=== PATIENT | female | born 1955 | race Caucasian/White ===

== ENCOUNTER → 2020-02-16 15:13 | Outpatient (BNVA) | payer OTHER, SELFPAY | PROVIDERS: Family Provider Family Medicine; Referring Provider Nurse Practitioner Family; Visit Provider Dermatology | DX: R21 Rash and other nonspecific skin eruption (principal); D23.9 Other benign neoplasm of skin, unspecified | CPT/HCPCS: 11104; 88304; 88305; 99203 ==

== ENCOUNTER → 2020-03-01 10:51 | Outpatient (BNVA) | payer OTHER, SELFPAY | PROVIDERS: Family Provider Family Medicine; Visit Provider Dermatology | DX: Z48.02 Encounter for removal of sutures (principal); L90.0 Lichen sclerosus et atrophicus | CPT/HCPCS: 99213 ==

== ENCOUNTER 2020-04-13 10:55 | Inpatient (IN) | payer OTHER, SELFPAY ==
[2020-04-13] VITALS (19 sets, daily range): BP systolic 90–128; BP diastolic 49–88; PULSE 83–97; RESP 18–30; TEMP 36.4–37.3; O2SAT 93–98; BMI 41.9; BMI 42.3
--- NOTE | 2020-04-13 11:18 | ECG_ITS ---
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 Measurements Intervals [place] Rate: 86 P: 44 TN: 163 QRS: -24 QRSD: 105 T: 20 QT: 378 QTc: 452 Interpretive Statements SINUS RHYTHM BORDERLINE LEFT AXIS DEVIATION [QRS AXIS < -20] No previous ECG available for comparison Electronically Signed On 04-15-2020 20:43:57 CDT by Sridhar Vanessa M.D. [id number]
--- NOTE | 2020-04-13 11:18 | XRR_ITS ---
PROCEDURE INFORMATION: Exam: XR Chest, 1 View Exam date and time: 04/13/2020 1:32 PM Age: 64 years old Clinical indication: Condition or disease; Other: Covid TECHNIQUE: Imaging protocol: XR of the chest Views: 1 view. COMPARISON: No relevant prior studies available. FINDINGS: Lungs: Low lung volumes are seen No consolidation. Pleural space: There is elevation of the right hemidiaphragm No pleural effusion. No pneumothorax. Heart/Mediastinum: Unremarkable. No cardiomegaly. Bones/joints: Unremarkable. XR/XR chest 1V portable [id number] IMPRESSION: 1. No acute findings. 2. Low lung volumes 3. Elevated right hemidiaphragm
--- NOTE | 2020-04-13 11:26 | ED_ITS ---
HPI - SOB/Dyspnea General: Chief Complaint: COVID symptoms Stated Complaint: COVID related breathing issues Time Seen by Provider: 04/13/20 10:59 History of Present Illness: HPI Narrative: This patient is a 64-year-old female who presents today with breathing difficulty. She was exposed to COVID on March 27. She began having symptoms on March 31 and came into the ER where she tested positive. Her symptoms up until yesterday have mainly been diarrhea, fever, body aches, weakness, poor appetite, fatigue. Yesterday she started having a bad cough and difficulty breathing. That has progressed and become worse today. She does not have any underlying lung problems or heart problems. She is a diabetic. She is morbidly obese. Her PCP is Dr. Boone. She has not been seen for the COVID other than in the ER on the . She has not been on any treatment for it. MD elicited complaint: shortness of breath and cough Pertinent past history: diabetes Onset (ago): day(s) (14 days since start of COVID symptoms, 2 days since start of cough and shortness of breath) Context: recent illness Exacerbating factors: exertion Relieving factors: nothing Known history of: diabetes Associated symptoms: Reports cough, dizziness, fever(s), lightheadedness, myalgias, nausea and other (Diarrhea) Review of Systems General: Reports: 10 or more systems reviewed and unremarkable except in HPI and below Const: Reports: fever(s), chills, body aches, change in appetite, fatigue and malaise Eyes: Denies: change in vision ENMT: Denies: odynophagia Card: Reports: lightheadedness Resp: Reports: dyspnea and non-productive cough; Denies: productive cough GI: Reports: nausea and diarrhea : Denies: flank pain or difficulty voiding Musc: Denies: neck pain or back pain Skin/Breast: Denies: rash Neuro: Reports: dizziness Umang/Lymph: Denies: easy bruising or easy bleeding PFSH ED PFSH: Medical History (Updated 04/17/20 @ 00:00 by ) Diabetes mellitus GERD (gastroesophageal reflux disease) Gout Hypercholesterolemia Hypertension Surgical History (Updated 04/13/20 @ 14:41 by Dalton Garcia MD) History of ankle surgery History of appendectomy History of cholecystectomy Hx of total hip arthroplasty Family History Father Cancer Diabetes Social History Smoking and tobacco status: never smoked Second hand smoke exposure: No Alcohol intake: never Physical Exam Const: COMMON NORMALS: patient oriented x3, no limitations and alert GENERAL APPEARANCE: cooperative, well kempt and anxious NUTRITIONAL APPEARANCE: obese morbidly obese HENMT: HEAD & SCALP: normal to inspection FACE & SINUS: normal facial exam Eye: GENERAL EYE: appearance normal, both eyes and all related structures Neck/C-Spine: COMMON NORMALS: supple, no meningeal signs and no JVD Chest: COMMONS NORMALS: normal inspection of the chest Resp: EFFORT & INSPECTION: Yes tachypneic, Yes labored and Yes uses accessory muscles AUSCULTATION: diminished lung sounds (Especially on the left) Cardio: COMMON NORMALS: no JVD, regular rate, regular rhythm and No murmurs present (Cardio) RATE: regular rate RHYTHM: regular rhythm GI: COMMON NORMALS: Normal to inspection, nondistended, normoactive bowel sounds present, Soft to palpation and non-tender INSPECTION: Yes normal to inspection AUSCULTATION: Yes normoactive bowel sounds PALPATION: Yes Soft to palpation Back/Pelvis: COMMON NORMALS: thoracic and lumbar spine normal to inspection Extremity: COMMON NORMALS: normal to inspection Neuro: COMMON NORMALS: patient oriented x3, moves all extremities, no focal motor deficits and no sensory deficits noted SENSORIUM/ORIENTATION: Yes alert MENINGEAL SIGNS: Yes no meningeal signs Psych: COMMON NORMALS: mental status grossly normal, cooperative and normal affect APPEARANCE: Yes well kempt Skin: COMMON NORMALS: no rashes or lesions noted and turgor normal GENERAL SKIN EXAM: no rashes or lesions noted and turgor normal Course ED course: This patient required no oxygen while in the ER. The lowest sat was 92% and for the most part she was in the mid to high 90s. She is well into the course and I am concerned about a secondary bacterial pneumonia. We discussed monitoring her oxygen at home. She will return if she is worsening. I put her on doxycycline. Will also continue some Decadron. She has a PCP for follow-up. Vital Signs: Vital signs: Vital Signs Temperature 98.8 F 04/16/20 08:00 Pulse Rate 63 04/16/20 10:34 Respiratory Rate 18 04/16/20 10:34 Blood Pressure 167/71 04/16/20 08:00 Pulse Oximetry 92 04/16/20 10:34 MDM - SOB/Dyspnea Lab Data: Labs: Lab Results 04/13/20 04/13/20 04/13/20 Range/Units 11:35 11:35 11:35 WBC 8.7 (4.0-10.0) 10^3/ uL RBC 4.02 L (4.1-5.3) 10^6/u L Hgb 10.7 L (11.5-15.3) g/dL Hct 33.9 L (37.0-47.0) % MCV 84.3 (81-99) fL MCH 26.6 L (28.0-34.0) pg MCHC 31.6 (30.0-36.0) g/dL RDW 13.5 (12.1-15.1) % Plt Count 232 (130-400) 10^3/c mm MPV 9.9 (7.4-10.4) fL Neut % (Auto) 77.4 % Lymph % (Auto) 14.1 % Beauregard % (Auto) 7.4 % Eos % (Auto) 0.6 % Baso % (Auto) 0.2 % Neut # (Auto) 6.75 (1.8-7.7) 10^3/u L Lymph # (Auto) 1.2 (0.8-4.8) 10^3/u L Beauregard # (Auto) 0.7 (0.2-0.9) 10^3/u L Eos # (Auto) 0.1 (0.0-0.8) 10^3/u L Baso # (Auto) 0.0 (0.0-0.1) 10^3/u L Nucleated RBC % (a uto) 0 % Nucleated RBCs # 0.0 /100WBC PT 12.80 (12.1-14.9) SECO NDS INR 0.93 (0.8-1.2) Fibrinogen 712 H (174-498) mg/dL D-Dimer 1.69 H (0-0.59) ug/mIFE U Sodium 137 (136-145) mmol/L Potassium 3.7 (3.5-5.1) mmol/L Chloride 97 L (98-107) mmol/L Carbon Dioxide 23 (22-29) mmol/L Anion Gap 20.7 H (5-19) BUN 38 H (8-23) mg/dL Creatinine 1.7 H (0.5-0.9) mg/dL GFR Calculation 30.4 L (90-130) mL/min Glucose 195 H (65-115) mg/dL Calculated Osmolal ity 298 H (285-295) mOsm/k g Lactic Acid (0.5-2.2) mmol/L Calcium 7.7 L (8.5-10.5) mg/dL Magnesium (1.7-2.3) mg/dL Ferritin 216 H (15-150) ng/mL Total Bilirubin 0.3 (0.15-1.2) mg/dL AST 44 H (0-32) U/L ALT 49 H (0-33) U/L Alkaline Phosphata se 142 H (35-105) IU/L Lactate Dehydrogen ase 250 H (135-214) U/L Troponin T Gen 5 n g/L (0-10) ng/L C-Reactive Protein 170.8 H (0.0-4.9) mg/L NT-Pro-B Natriuret Pep 167 H (0-125) pg/mL Total Protein 6.4 L (6.6-8.7) g/dL Albumin 3.4 L (3.5-5.2) g/dL Globulin 3.0 (1.3-4.6) g/dL Procalcitonin 0.11 (0-0.5) ng/mL Hepatitis A IgM Ab (Nonreactive) Hep Bs Antigen (Nonreactive) Hep B Core IgM Ab (Nonreactive) Hepatitis C Antibo dy (Nonreactive) 04/13/20 04/13/20 04/13/20 Range/Units 11:35 11:35 11:35 WBC (4.0-10.0) 10^3/ uL RBC (4.1-5.3) 10^6/u L Hgb (11.5-15.3) g/dL Hct (37.0-47.0) % MCV (81-99) fL MCH (28.0-34.0) pg MCHC (30.0-36.0) g/dL RDW (12.1-15.1) % Plt Count (130-400) 10^3/c mm MPV (7.4-10.4) fL Neut % (Auto) % Lymph % (Auto) % Beauregard % (Auto) % Eos % (Auto) % Baso % (Auto) % Neut # (Auto) (1.8-7.7) 10^3/u L Lymph # (Auto) (0.8-4.8) 10^3/u L Beauregard # (Auto) (0.2-0.9) 10^3/u L Eos # (Auto) (0.0-0.8) 10^3/u L Baso # (Auto) (0.0-0.1) 10^3/u L Nucleated RBC % (a uto) % Nucleated RBCs # /100WBC PT (12.1-14.9) SECO NDS INR (0.8-1.2) Fibrinogen (174-498) mg/dL D-Dimer (0-0.59) ug/mIFE U Sodium (136-145) mmol/L Potassium (3.5-5.1) mmol/L Chloride (98-107) mmol/L Carbon Dioxide (22-29) mmol/L Anion Gap (5-19) BUN (8-23) mg/dL Creatinine (0.5-0.9) mg/dL GFR Calculation (90-130) mL/min Glucose (65-115) mg/dL Calculated Osmolal ity (285-295) mOsm/k g Lactic Acid 1.9 (0.5-2.2) mmol/L Calcium (8.5-10.5) mg/dL Magnesium (1.7-2.3) mg/dL Ferritin (15-150) ng/mL Total Bilirubin (0.15-1.2) mg/dL AST (0-32) U/L ALT (0-33) U/L Alkaline Phosphata se (35-105) IU/L Lactate Dehydrogen ase (135-214) U/L Troponin T Gen 5 n g/L 19 H (0-10) ng/L C-Reactive Protein (0.0-4.9) mg/L NT-Pro-B Natriuret Pep (0-125) pg/mL Total Protein (6.6-8.7) g/dL Albumin (3.5-5.2) g/dL Globulin (1.3-4.6) g/dL Procalcitonin (0-0.5) ng/mL Hepatitis A IgM Ab Non-reactive (Nonreactive) Hep Bs Antigen Non-reactive (Nonreactive) Hep B Core IgM Ab Non-reactive (Nonreactive) Hepatitis C Antibo dy Non-reactive (Nonreactive) 04/13/20 Range/Units 11:35 WBC (4.0-10.0) 10^3/ uL RBC (4.1-5.3) 10^6/u L Hgb (11.5-15.3) g/dL Hct (37.0-47.0) % MCV (81-99) fL MCH (28.0-34.0) pg MCHC (30.0-36.0) g/dL RDW (12.1-15.1) % Plt Count (130-400) 10^3/c mm MPV (7.4-10.4) fL Neut % (Auto) % Lymph % (Auto) % Beauregard % (Auto) % Eos % (Auto) % Baso % (Auto) % Neut # (Auto) (1.8-7.7) 10^3/u L Lymph # (Auto) (0.8-4.8) 10^3/u L Beauregard # (Auto) (0.2-0.9) 10^3/u L Eos # (Auto) (0.0-0.8) 10^3/u L Baso # (Auto) (0.0-0.1) 10^3/u L Nucleated RBC % (a uto) % Nucleated RBCs # /100WBC PT (12.1-14.9) SECO NDS INR (0.8-1.2) Fibrinogen (174-498) mg/dL D-Dimer (0-0.59) ug/mIFE U Sodium (136-145) mmol/L Potassium (3.5-5.1) mmol/L Chloride (98-107) mmol/L Carbon Dioxide (22-29) mmol/L Anion Gap (5-19) BUN (8-23) mg/dL Creatinine (0.5-0.9) mg/dL GFR Calculation (90-130) mL/min Glucose (65-115) mg/dL Calculated Osmolal ity (285-295) mOsm/k g Lactic Acid (0.5-2.2) mmol/L Calcium (8.5-10.5) mg/dL Magnesium 1.3 L (1.7-2.3) mg/dL Ferritin (15-150) ng/mL Total Bilirubin (0.15-1.2) mg/dL AST (0-32) U/L ALT (0-33) U/L Alkaline Phosphata se (35-105) IU/L Lactate Dehydrogen ase (135-214) U/L Troponin T Gen 5 n g/L (0-10) ng/L C-Reactive Protein (0.0-4.9) mg/L NT-Pro-B Natriuret Pep (0-125) pg/mL Total Protein (6.6-8.7) g/dL Albumin (3.5-5.2) g/dL Globulin (1.3-4.6) g/dL Procalcitonin (0-0.5) ng/mL Hepatitis A IgM Ab (Nonreactive) Hep Bs Antigen (Nonreactive) Hep B Core IgM Ab (Nonreactive) Hepatitis C Antibo dy (Nonreactive) Discharge Plan Discharge Patient Disposition: Admitted As Inpatient Admit Provider: Dalton Garcia Clinical Impression: Pneumonia due to COVID-19 virus, Acute kidney injury, Dehydration Condition: Stable Referrals: Kimberly Boone MD [Physician] - 04/20/20 1:45 pm () Discharge Diet: Cardiac and Diabetic Discharge Activity: Increase activity as tolerated Patient Instructions: Doxycycline (By mouth), Albuterol (By breathing), Dexamethasone (By mouth), Apixaban (By mouth), Acute Kidney Injury (DC) Additional Instructions: Take all medicine as prescribed. Return for any worsening. Follow-up with your primary care provider by telehealth, Sunday On follow-up with your primary care provider please get a CBC, and BMP for recheck of your hemoglobin and kidney function. For now hold your carvedilol secondary to bradycardia. Your primary care provider will assess this and recommend restart or alter dosing Sunday. Home oxygen evaluation prior to discharge. 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
[2020-04-13] MEDS: lactated ringers 1,000 ML 150 ML IV (11:42)
[2020-04-13] MEDS: dexamethasone 4 mg/mL INJ 6 MG IVP (11:43)
[2020-04-13] MEDS: enoxaparin 40 mg/0.4 mL Syringe SUBCUT (11:43)
[2020-04-13] MEDS: enoxaparin 100 mg/mL Syringe SUBCUT (11:43)
[2020-04-13 11:49] LABS: Basophils % 0.2 %; Eosinophils # 0.1 10^3/uL (0.0-0.8); Eosinophils % 0.6 %; Hematocrit 33.9 % (37.0-47.0); Hemoglobin 10.7 g/dL (11.5-15.3); Lymphocytes # 1.2 10^3/uL (0.8-4.8); Lymphocytes % 14.1 %; Mean Corpuscular HGB Conc 31.6 g/dL (30.0-36.0); Mean Corpuscular Hemoglobin 26.6 pg (28.0-34.0); Mean Corpuscular Volume 84.3 fL (81-99); Mean Platelet Volume 9.9 fL (7.4-10.4); Monocytes # 0.7 10^3/uL (0.2-0.9); Monocytes % 7.4 %; Neutrophils # 6.75 10^3/uL (1.8-7.7); Neutrophils % 77.4 %; Nucleated Red Blood Cells % 0 %; Platelet Count 232 10^3/cmm (130-400); Red Blood Count 4.02 10^6/uL (4.1-5.3); Red Cell Distribution Width 13.5 % (12.1-15.1); White Blood Count 8.7 10^3/uL (4.0-10.0)
[2020-04-13 12:02] LABS: INR 0.93 (0.8-1.2)
[2020-04-13 12:03] LABS: Fibrinogen 712 mg/dL (174-498)
[2020-04-13 12:04] LABS: Lactic Sepsis W/Reflex 1.9 mmol/L (0.5-2.2)
[2020-04-13 12:05] LABS: D Dimer 1.69 ug/mIFEU (0-0.59)
[2020-04-13 12:13] LABS: Troponin T (5th) Once 19 ng/L (0-10)
[2020-04-13 12:21] LABS: Alanine Aminotransferase 49 U/L (0-33); Albumin Level 3.4 g/dL (3.5-5.2); Alkaline Phosphatase 142 IU/L (35-105); Anion Gap 20.7 (5-19); Aspartate Amino Transferase 44 U/L (0-32); Blood Urea Nitrogen 38 mg/dL (8-23); Calcium 7.7 mg/dL (8.5-10.5); Carbon Dioxide 23 mmol/L (22-29); Chloride 97 mmol/L (98-107); Glomerular Filtration Rate 30.4 mL/min (90-130); Glucose 195 mg/dL (65-115); Lactate Dehydrogenase 250 U/L (135-214); NT Pro B Type Natriuretic Pept 167 pg/mL (0-125); Osmolality Calculated 298 mOsm/kg (285-295); Potassium 3.7 mmol/L (3.5-5.1); Sodium 137 mmol/L (136-145); Total Bilirubin 0.3 mg/dL (0.15-1.2); Total Protein 6.4 g/dL (6.6-8.7)
[2020-04-13 12:26] LABS: Creatinine Clr Calc Pharmacy 53.4316
[2020-04-13 12:59] LABS: Procalcitonin 0.11 ng/mL (0-0.5)
[2020-04-13 13:09] LABS: C Reactive Protein 170.8 mg/L (0.0-4.9); Ferritin 216 ng/mL (15-150)
--- NOTE | 2020-04-13 14:39 | P.HP_ITS ---
Providers/Chief Complaint Chief Complaint: COVID related breathing issues History of Present Illness Yvette Fontana is a 64 year old female who presents with increasing shortness of breath over the last 3 to 4 days. She was diagnosed with COVID on the and symptoms started at that time as well. Since that time she has had intermittent fevers, diarrhea. She is still eating and drinking. She has been nauseous at times. She has been coughing quite a bit more along with her felicitas rtness of breath in the last 3 to 4 days. Quite a bit of nasal congestion. Review of Systems General: Reports: 10 or more systems reviewed and unremarkable except in HPI and below Const: Reports: fever(s) Eyes: Denies: change in vision ENMT: Denies: throat pain Card: Denies: chest pain Resp: Reports: dyspnea GI: Denies: abdominal pain : Denies: flank pain Musc: Denies: neck pain Skin/Breast: Denies: rash Neuro: Denies: headache(s) Psych: Denies: anxiety Endo: Denies: polyuria Umang/Lymph: Denies: easy bruising All/Imm: Denies: urticaria Medications/Allergies Home Medications Medication Instructions Recorded Confirmed Last Taken Type allopurinol 100 mg tablet 100 mg PO DAILY 02/16/20 03/01/20 Unknown History carvedilol 12.5 mg tablet 12.5 mg PO BID 02/16/20 03/01/20 Unknown History cilostazol 50 mg tablet 50 mg PO BID 02/16/20 03/01/20 Unknown History glipizide 5 mg tablet, extended 5 mg PO DAILY 02/16/20 03/01/20 Unknown History release 24 hr lisinopril 20 1 tab PO DAILY 02/16/20 03/01/20 Unknown History mg-hydrochlorothiazide 25 mg tablet metformin 500 mg tablet 500 mg PO DAILY 02/16/20 03/01/20 Unknown History omeprazole 20 mg capsule,delayed 20 mg PO DAILY 02/16/20 03/01/20 Unknown History release oxybutynin chloride 5 mg tablet 10 mg PO DAILY tab 02/16/20 03/01/20 Unknown History simvastatin 40 mg tablet 40 mg PO DAILY 02/16/20 03/01/20 Unknown History clobetasol 0.05 % topical ointment 1 applic TOPICAL BID #60 gm 03/01/20 03/01/20 Unknown Rx triamcinolone acetonide 0.1 % 1 applic TOPICAL BID #80 gm 03/01/20 03/01/20 Unknown Rx topical ointment Allergies Allergy/AdvReac Type Severity Reaction Status Date / Time No Known Allergies Allergy Unverified 02/16/20 15:32 PFSH Acute PFSH: Medical History (Updated 04/13/20 @ 14:50 by Dalton Garcia MD) Diabetes mellitus GERD (gastroesophageal reflux disease) Gout Hypercholesterolemia Hypertension Surgical History (Updated 04/13/20 @ 14:41 by Dalton Garcia MD) History of ankle surgery History of appendectomy History of cholecystectomy Hx of total hip arthroplasty Family History Father Cancer Diabetes Social History Smoking and tobacco status: never smoked Second hand smoke exposure: No Alcohol intake: never Vitals/I&O/Wt Last Vital Signs Temp 97.6 F 04/13/20 11:49 Pulse 85 04/13/20 12:02 Resp 26 H 04/13/20 12:02 BP 99/51 04/13/20 12:02 Pulse Ox 96 04/13/20 13:47 Weight last 48 hrs Weight 140.16 kg Physical Exam Narrative: EXAM NARRATIVE: General exam is a white female, with moderate tachypnea HEENT: Pupils equally round. Oropharynx clear. Neck is supple no lymphadenopathy or thyromegaly Cardiovascular regular rate and rhythm, no murmur Lungs diminished breath sounds bilaterally with a few dry crackles Abdomen is soft obese nontender with positive bowel sounds Extremities no cyanosis clubbing or edema. Pulses intact. Skin no rash Neuro no focal deficits Data : 04/13/20 11:35 04/13/20 11:35 Micro: Microbiology 04/13/20 11:35 Blood Culture - Preliminary Blood SPECIMEN COLLECTED Other data: Chest x-ray demonstrates right hemidiaphragm elevation, overall poor film secondary to weight. Difficult to see any infiltrate. Lactic acid level normal. Calcium 7.7. Ferritin 216. AST, ALT, alk phos, LDH with slight elevations. Troponin XIX. CRP 170. BNP 167, procalcitonin level 0.11, albumin 3.4 EKG demonstrates sinus rhythm, left axis deviation. No acute changes are noted. A&P Assessment and plan (1) Pneumonia due to COVID-19 virus: Initiate remdesivir Initiate dexamethasone Doxycycline empirically orally Albuterol as needed Oxygen, titrate as needed Check ABG Has acute hypoxic respiratory failure. Currently requiring 2 L in the emergency department. Significant tachypnea as well with a respiratory rate of 30. Status: Acute (2) Acute kidney injury: Hydration Recheck renal function tomorrow Check urinalysis Hold MARIUSZ inhibitor Status: Acute (3) Transaminitis: Likely secondary to COVID Check acute hepatitis panel Status: Acute (4) Dehydration: Rehydration Status: Acute Additional A&P Information Elevated dimer. Full dose anticoagulation currently. Check CTA when renal function improved. Type 2 diabetes. Sliding scale insulin Hypertension. Currently with lower blood pressure. Continue carvedilol but hold other medication including MARIUSZ inhibitor in the face of renal dysfunction Hyperlipidemia. Continue statin History of gout. 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
[2020-04-13 14:47] LABS: ABG PCO2 34.5 mmHg (35-45); ABG PH Result 7.43 (7.35-7.45); Arterial Blood Gas Hematocrit 34.8 % (37-47); Base Excess ABG -1.2 mmol/L (-2.0-2.0); Blood Gas Allen Test Pos; Blood Gas Operator Identificat CAK; Blood Gas Sample Site Radial, left; Blood Gas Sample Type Arterial; HCO3 ABG 22.7 mmol/L (22-26); Oxygen Device NC
[2020-04-13 15:34] LABS: Magnesium 1.3 mg/dL (1.7-2.3)
[2020-04-13] MEDS: sodium chloride 0.9% 1,000 ML 75 ML IV (15:44)
[2020-04-13 16:17] LABS: Glucose Point of Care 229 mg/dL (70-110)
[2020-04-13] MEDS: albuterol 8 gm MDI 2 PUFF INHALATION ×2 (16:31→23:47)
[2020-04-13] MEDS: carvedilol 12.5 mg Tablet PO (17:16)
[2020-04-13] MEDS: doxycycline 100 mg Tablet PO (17:19)
[2020-04-13 18:37] LABS: Urine Appearance Clear (CLEAR); Urine Color Yellow (Yellow)
[2020-04-13 18:39] LABS: Bilirubin Urine Neg (Negative); Blood Urine Neg (Negative); Glucose Urine UA Norm (Normal); Ketones Urine Negative (Negative); Leukocyte Esterase Urine Negative (Negative); Nitrate Urine Negative (Negative); Protein Urine Neg (Negative); Specific Gravity, Urine 1.005 (1.005-1.030); Urobilinogen Urine Norm (Negative); pH Urine 5 (5-7)
[2020-04-13 18:40] LABS: Add Urine Culture? No; Bacteria Urine 4+ /hpf; Squamous Epithelial Cell Urine 0-4 /hpf (0-5); WBC Urine 0-4 /hpf (0-5)
[2020-04-13 19:05] LABS: Hepatitis A Antibody IgM Non-Reactive (Nonreactive); Hepatitis B Core IgM Non-Reactive (Nonreactive); Hepatitis B Surface Antigen Non-Reactive (Nonreactive); Hepatitis C Virus Antibody Non-Reactive (Nonreactive)
[2020-04-13 20:33] LABS: Glucose Point of Care 291 mg/dL (70-110)
[2020-04-14] VITALS (29 sets, daily range): BP systolic 111–147; BP diastolic 68–97; PULSE 59–113; RESP 13–28; TEMP 36.8–36.9; O2SAT 91–98
[2020-04-14] MEDS: enoxaparin 40 mg/0.4 mL Syringe SUBCUT ×2 (00:13→11:23)
[2020-04-14] MEDS: enoxaparin 100 mg/mL Syringe SUBCUT ×2 (00:13→11:22)
[2020-04-14 05:31] LABS: D Dimer 1.03 ug/mIFEU (0-0.59)
[2020-04-14] MEDS: sodium chloride 0.9% 1,000 ML 75 ML IV (05:40)
[2020-04-14 06:18] LABS: Glucose Point of Care 141 mg/dL (70-110)
[2020-04-14 06:22] LABS: Ferritin 210 ng/mL (15-150)
[2020-04-14 06:23] LABS: Alanine Aminotransferase 43 U/L (0-33); Albumin Level 3.4 g/dL (3.5-5.2); Alkaline Phosphatase 121 IU/L (35-105); Anion Gap 17.7 (5-19); Aspartate Amino Transferase 31 U/L (0-32); Blood Urea Nitrogen 26 mg/dL (8-23); C Reactive Protein 142.8 mg/L (0.0-4.9); Calcium 7.8 mg/dL (8.5-10.5); Carbon Dioxide 23 mmol/L (22-29); Chloride 106 mmol/L (98-107); Glomerular Filtration Rate 63.2 mL/min (90-130); Glucose 138 mg/dL (65-115); Osmolality Calculated 303 mOsm/kg (285-295); Potassium 3.7 mmol/L (3.5-5.1); Sodium 143 mmol/L (136-145); Total Bilirubin 0.2 mg/dL (0.15-1.2); Total Protein 6.4 g/dL (6.6-8.7)
[2020-04-14 06:26] LABS: Basophils % 0.2 %; Hematocrit 29.9 % (37.0-47.0); Hemoglobin 10.1 g/dL (11.5-15.3); Lymphocytes % 16.9 %; Mean Corpuscular HGB Conc 33.8 g/dL (30.0-36.0); Mean Corpuscular Hemoglobin 26.8 pg (28.0-34.0); Mean Corpuscular Volume 79.3 fL (81-99); Mean Platelet Volume 9.9 fL (7.4-10.4); Monocytes # 0.6 10^3/uL (0.2-0.9); Monocytes % 9.9 %; Neutrophils # 4.15 10^3/uL (1.8-7.7); Neutrophils % 72.5 %; Nucleated Red Blood Cells % 0 %; Platelet Count 262 10^3/cmm (130-400); Red Blood Count 3.77 10^6/uL (4.1-5.3); Red Cell Distribution Width 13.1 % (12.1-15.1); White Blood Count 5.7 10^3/uL (4.0-10.0)
[2020-04-14 06:43] LABS: Slide Review Slide Review Perform
[2020-04-14] MEDS: albuterol 8 gm MDI 2 PUFF INHALATION ×2 (07:20→21:52)
[2020-04-14] MEDS: carvedilol 12.5 mg Tablet PO ×2 (09:04→17:08)
[2020-04-14] MEDS: pantoprazole DR 40 mg Tablet PO (09:29)
[2020-04-14] MEDS: doxycycline 100 mg Tablet PO ×2 (09:29→17:11)
[2020-04-14] MEDS: dexamethasone 4 mg/mL INJ 6 MG IVP (11:23)
[2020-04-14 11:41] LABS: Glucose Point of Care 189 mg/dL (70-110)
--- NOTE | 2020-04-14 11:41 | CT_ITS ---
WS: [id number] CT CHEST ANGIOGRAPHY WITH REFORMATS HISTORY: elevated dimer TECHNIQUE: Contiguous axial images are obtained through the chest during arterial injection of intrav enous contrast. Images are reconstructed to evaluate the pulmonary arteries. MIP imaging also reviewe d. All CT scans at [facility] use at least one of these dose optimization techniques: aut omated exposure control; mA and/or kV adjustment per patient size (includes targeted exams where dose is matched to clinical indication); or iterative reconstruction. CONTRAST: Omnipaque 350; 95 mL IV. DLP: 517.36 mGy.cm COMPARISON: None available. Adequate but limited opacification of the pulmonary arteries. Centrally there is no pulmonary embolis m. Beyond the lobar branches the opacification is limited by body habitus and poor injection. Moderat e elevation of the RIGHT hemidiaphragm. Scattered bilateral and multi lobar opacifications consistent with a history of Covid 19. No pleural effusion. Mediastinal and hilar indeterminate lymph nodes. La rgest lymph node at the RIGHT hilum measures 9.5 mm. Normal size aorta. Mild enlargement of the LEFT heart chambers. No pericardial effusion. No abnormality in the upper abd omen other than hepatic steatosis. Prior cholecystectomy. No osseous abnormalities. CT/CT angio chest PE protcl [id number] IMPRESSION: 1. No pulmonary embolism through the lobar branches. Limited opacification of the pulmonary arteries. 2. Moderate elevation RIGHT hemidiaphragm with compressive atelectasis in the RIGHT lower lung field. 3. Scattered pulmonary opacifications consistent with a history of Covid 19 di agnosis. 4. Mild LEFT heart enlargement. 5. Hepatic steatosis and prior cholecystectomy.
[2020-04-14] MEDS: benzonatate 100 mg Capsule PO (11:57)
--- NOTE | 2020-04-14 12:17 | P.PN_ITS ---
Subjective Subjective: Interval history: Yvette reports she feels a little bit better. No chest pain. Still short of breath. Medications: Reviewed: Yes Vitals/I&O/Wt Last Vital Signs Temp 98.5 F 04/14/20 07:40 Pulse 79 04/14/20 11:00 Resp 18 04/14/20 11:00 BP 117/88 04/14/20 11:00 Pulse Ox 94 04/14/20 11:00 04/13/20 04/14/20 04/14/20 22:59 06:59 14:59 Intake Total 680 / 1680 1120 / 2800 620 / 620 Output Total 1250 / 1250 2100 / 3350 600 / 600 Balance -570 / 430 -980 / -550 Weight last 48 hrs Weight 139.979 kg Weight 141.702 kg Weight 140.16 kg Physical Exam Narrative: EXAM NARRATIVE: General exam is a white female, with moderate tachypnea Cardiovascular regular rate and rhythm, no murmur Lungs clear Abdomen is soft obese nontender with positive bowel sounds Extremities no cyanosis clubbing or edema. Pulses intact. Data : 04/14/20 04:30 04/14/20 04:30 Micro: Microbiology 04/13/20 11:35 Blood Culture - Preliminary Blood NEGATIVE TO DATE 04/13/20 20:20 Blood Culture - Preliminary Blood SPECIMEN COLLECTED A&P Assessment and plan (1) Pneumonia due to COVID-19 virus: Continue remdesivir Continue dexamethasone Doxycycline empirically orally Albuterol as needed Oxygen, titrate as needed. Currently on 2 L Status: Acute (2) Acute kidney injury: Discontinue hydration. Renal function has now returned to normal No evidence of infection on urinalysis Continue to hold MARIUSZ inhibitor Status: Acute (3) Transaminitis: Likely secondary to COVID Hepatitis panel negative Status: Acute (4) Dehydration: Resolved Status: Acute Additional A&P Information Elevated dimer. Full dose anticoagulation currently. If negative will reduce Lovenox dosing Type 2 diabetes. Sliding scale insulin Hypertension. Continue carvedilol Hyperlipidemia. Continue statin History of gout. Continue allopurinol Attestations Medical Necessity Statement*: Needs continued hospitalization secondary to Covid 19 pneumonia, for antiviral dexamethasone and supportive care with oxygen Coding Level of Care Code Acute Refrigeration Brazer/Solderer for [facility] Diagnoses Pneumonia due to COVID-19 virus U07.1; J12.89 Acute kidney injury N17.9 Transaminitis R74.01 Dehydration E86.0
[2020-04-14 16:42] LABS: Glucose Point of Care 232 mg/dL (70-110)
[2020-04-14 20:09] LABS: Glucose Point of Care 223 mg/dL (70-110)
[2020-04-14] MEDS: atorvastatin 40 mg Tablet 20 MG PO (20:14)
[2020-04-14] MEDS: allopurinol 100 mg Tablet PO (20:14)
[2020-04-15] VITALS (23 sets, daily range): BP systolic 116–155; BP diastolic 57–92; PULSE 43–86; RESP 11–31; TEMP 36.6–37.1; O2SAT 91–97; BMI 41.8
[2020-04-15 05:42] LABS: Basophils % 0.1 %; Hematocrit 32.3 % (37.0-47.0); Hemoglobin 10.2 g/dL (11.5-15.3); Lymphocytes # 1.2 10^3/uL (0.8-4.8); Lymphocytes % 14.9 %; Mean Corpuscular HGB Conc 31.6 g/dL (30.0-36.0); Mean Corpuscular Hemoglobin 26.7 pg (28.0-34.0); Mean Corpuscular Volume 84.6 fL (81-99); Mean Platelet Volume 9.7 fL (7.4-10.4); Monocytes # 0.6 10^3/uL (0.2-0.9); Monocytes % 6.9 %; Neutrophils # 6.41 10^3/uL (1.8-7.7); Nucleated Red Blood Cells % 0 %; Platelet Count 322 10^3/cmm (130-400); Red Blood Count 3.82 10^6/uL (4.1-5.3); Red Cell Distribution Width 13.5 % (12.1-15.1); White Blood Count 8.3 10^3/uL (4.0-10.0)
[2020-04-15 06:24] LABS: Alanine Aminotransferase 40 U/L (0-33); Albumin Level 3.2 g/dL (3.5-5.2); Alkaline Phosphatase 120 IU/L (35-105); Anion Gap 15.7 (5-19); Aspartate Amino Transferase 33 U/L (0-32); Blood Urea Nitrogen 24 mg/dL (8-23); Calcium 7.8 mg/dL (8.5-10.5); Carbon Dioxide 24 mmol/L (22-29); Chloride 104 mmol/L (98-107); Glomerular Filtration Rate 72.4 mL/min (90-130); Glucose 156 mg/dL (65-115); Osmolality Calculated 297 mOsm/kg (285-295); Potassium 3.7 mmol/L (3.5-5.1); Sodium 140 mmol/L (136-145); Total Bilirubin 0.2 mg/dL (0.15-1.2); Total Protein 6.2 g/dL (6.6-8.7)
[2020-04-15 06:34] LABS: Glucose Point of Care 139 mg/dL (70-110)
[2020-04-15] MEDS: doxycycline 100 mg Tablet PO ×2 (08:35→17:52)
[2020-04-15] MEDS: benzonatate 100 mg Capsule PO (08:35)
[2020-04-15] MEDS: carvedilol 12.5 mg Tablet PO (08:36)
[2020-04-15] MEDS: pantoprazole DR 40 mg Tablet PO (08:36)
[2020-04-15] MEDS: albuterol 8 gm MDI 2 PUFF INHALATION ×2 (09:17→20:30)
--- NOTE | 2020-04-15 09:33 | PM.PN ---
Subjective Subjective: Interval history: Yvette reports she is doing well. She came off oxygen this morning. No specific complaints. Some bradycardias noted. Medications: Reviewed: Yes Vitals/I&O/Wt Last Vital Signs Temp 97.9 F 04/15/20 08:00 Pulse 48 L 04/15/20 06:00 Resp 22 H 04/15/20 06:00 BP 136/77 04/15/20 06:00 Pulse Ox 94 04/15/20 06:00 04/14/20 04/15/20 04/15/20 22:59 06:59 14:59 Intake Total 1070 / 2170 Output Total 960 / 2000 500 / 2500 Balance 110 / 170 -500 / -330 Weight last 48 hrs Weight 139.979 kg Weight 139.979 kg Weight 141.702 kg Weight 140.16 kg Physical Exam Narrative: EXAM NARRATIVE: General exam is a white female, with moderate tachypnea Cardiovascular regular rate and rhythm, no murmur Lungs clear Abdomen is soft obese nontender with positive bowel sounds Extremities no cyanosis clubbing or edema. Pulses intact. Data : 04/15/20 04:30 04/15/20 04:30 Micro: Microbiology 04/13/20 20:20 Blood Culture - Preliminary Blood NEGATIVE TO DATE 04/13/20 11:35 Blood Culture - Preliminary Blood NEGATIVE TO DATE A&P Assessment and plan (1) Pneumonia due to COVID-19 virus: Continue remdesivir Continue dexamethasone Doxycycline empirically orally Albuterol as needed Oxygen, titrate as needed. Currently on 2 L Status: Acute (2) Acute kidney injury: Renal function now normal No evidence of infection on urinalysis Continue to hold MARIUSZ inhibitor Status: Acute (3) Transaminitis: Likely secondary to COVID Hepatitis panel negative Status: Acute (4) Dehydration: Resolved Status: Acute Additional A&P Information Elevated dimer. CTA negative. Lovenox dose decreased Type 2 diabetes. Sliding scale insulin Hypertension. Reduce carvedilol dose secondary to bradycardia Hyperlipidemia. Continue statin History of gout. Continue allopurinol Attestations Medical Necessity Statement*: Needs continued hospitalization for antiviral, supportive care with close monitoring secondary to COVID-19 pneumonia. Possible discharge tomorrow. 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
[2020-04-15 11:28] LABS: Glucose Point of Care 161 mg/dL (70-110)
[2020-04-15] MEDS: enoxaparin 40 mg/0.4 mL Syringe SUBCUT (11:34)
[2020-04-15] MEDS: dexamethasone 4 mg/mL INJ 6 MG IVP (11:34)
[2020-04-15 22:26] LABS: Glucose Point of Care 180 mg/dL (70-110)
[2020-04-15] MEDS: atorvastatin 40 mg Tablet 20 MG PO (22:53)
[2020-04-15] MEDS: allopurinol 100 mg Tablet PO (22:53)
[2020-04-16] VITALS: BP 144/80; PULSE 51; RESP 20; TEMP 37; O2SAT 92
[2020-04-16 04:00] VITALS: BP 147/78; PULSE 42; RESP 28; TEMP 37.1; O2SAT 94
[2020-04-16 06:16] LABS: Alanine Aminotransferase 44 U/L (0-33); Albumin Level 3.1 g/dL (3.5-5.2); Alkaline Phosphatase 110 IU/L (35-105); Anion Gap 15.7 (5-19); Aspartate Amino Transferase 33 U/L (0-32); Blood Urea Nitrogen 31 mg/dL (8-23); Calcium 8.2 mg/dL (8.5-10.5); Carbon Dioxide 23 mmol/L (22-29); Chloride 105 mmol/L (98-107); Glucose 148 mg/dL (65-115); Osmolality Calculated 299 mOsm/kg (285-295); Potassium 3.7 mmol/L (3.5-5.1); Sodium 140 mmol/L (136-145); Total Bilirubin 0.2 mg/dL (0.15-1.2); Total Protein 6.1 g/dL (6.6-8.7)
[2020-04-16 07:04] LABS: Glucose Point of Care 131 mg/dL (70-110)
[2020-04-16 08:00] VITALS: BP 167/71; PULSE 57; RESP 18; TEMP 37.1; O2SAT 91
[2020-04-16] MEDS: pantoprazole DR 40 mg Tablet PO (08:20)
[2020-04-16] MEDS: doxycycline 100 mg Tablet PO (08:20)
--- NOTE | 2020-04-16 08:20 | PM.DCS ---
Discharge Providers Date of Admission: 04/13/20 14:21 Date of Discharge: April 16, 2020 Attending Provider at Admission: Dalton Garcia MD Attending Provider at Discharge: Dalton Garcia MD Diagnoses at Discharge Discharge Diagnosis (1) Pneumonia due to COVID-19 virus: Status: Acute Problem details: Off oxygen for 48 hours and ready for discharge. (2) Acute kidney injury: Status: Acute Problem details: Resolved (3) Transaminitis: Status: Acute (4) Dehydration: Status: Acute Reason for Visit Reason for Visit: COVID related breathing issues Hospital Course Hospital Course: Yvette is a 64-year-old white female who presented to the hospital with COVID-19 pneumonia, requiring 2 L of oxygen. She was placed on antiviral, dexamethasone, anticoagulation and given supportive care. While in the hospital she had some bradycardia and her carvedilol was ultimately held. This was asymptomatic. She came off oxygen quickly, and by the end of the hospital course had been off oxygen for 48 hours. She completed 3 out of 5 doses of remdesivir. At discharge she was afebrile, with an oxygen saturation of 94% on room air. Home oxygen evaluation to be done prior to discharge. She will be discharged on Eliquis for 2 weeks upon discharge. Risks and benefits, and lack of scientific evidence currently were discussed. Lower dosing was chosen secondary to mild anemia patient had while in the hospital, although no evidence of active bleeding was noted. Physical Exam Narrative: EXAM NARRATIVE: General exam no apparent distress Cardiovascular regular rate and rhythm without murmur Lungs clear Abdomen is soft with positive bowel sounds Extremities no cyanosis clubbing or edema Discharge Data Data Completed and Pending: Completed Studies During Hospitalization Category Date Time Status CT angio chest PE protcl [id number] Rout ine Cat Scan 04/14/20 11:41 Completed XR chest 1V joseline ble [id number] Stat Exams 04/13/20 11:18 Completed Pending at discharge Category Date Time Status Blood Culture Sta t Lab 04/13/20 20:20 Results Labs from last 24 hours 04/16/20 04/16/20 04/15/20 06:37 04:45 22:12 Sodium 140 Potassium 3.7 Chloride 105 Carbon Dioxide 23 Anion Gap 15.7 BUN 31 H Creatinine 1.0 H GFR Calculation 56.0 L Glucose 148 H POC Glucose 131 180 Calculated Osmolal ity 299 H Calcium 8.2 L Total Bilirubin 0.2 AST 33 H ALT 44 H Alkaline Phosphata se 110 H Total Protein 6.1 L Albumin 3.1 L Globulin 3.0 04/15/20 11:22 Sodium Potassium Chloride Carbon Dioxide Anion Gap BUN Creatinine GFR Calculation Glucose POC Glucose 161 Calculated Osmolal ity Calcium Total Bilirubin AST ALT Alkaline Phosphata se Total Protein Albumin Globulin Vitals: Last Vital Signs Temp 98.8 F 04/16/20 04:00 Pulse 42 L 04/16/20 04:00 Resp 28 H 04/16/20 04:00 BP 147/78 04/16/20 04:00 Pulse Ox 94 04/16/20 04:00 Discharge Plan Discharge Patient Disposition: Home Condition: Stable Prescriptions: New albuterol sulfate [Ventolin HFA] 90 mcg/actuation Hfa Aerosol Inhaler 2 puff inhalation Q4H.RESPIRATORY PRN (Reason: Shortness Of Breath) Qty: 6.7 RF: 0 doxycycline monohydrate 100 mg Tablet 100 mg PO BID Qty: 14 RF: 0 dexamethasone 6 mg tablet 6 mg PO DAILY Qty: 7 RF: 0 Eliquis 2.5 mg tablet 2.5 mg PO BID Qty: 28 RF: 0 Continued clobetasol 0.05 % ointment 1 applic TOPICAL BID Qty: 60 RF: 2 triamcinolone acetonide 0.1 % ointment 1 applic TOPICAL BID Qty: 80 RF: 2 metformin 500 mg tablet 1,000 mg PO BIDWMEAL RF: 0 glipizide 5 mg tablet extended release 24hr 10 mg PO BID RF: 0 oxybutynin chloride 5 mg tablet 10 mg PO DAILY RF: 0 allopurinol 100 mg tablet 100 mg PO DAILY RF: 0 cilostazol 50 mg tablet 50 mg PO BID RF: 0 omeprazole 20 mg capsule,delayed release(DR/EC) 20 mg PO DAILY RF: 0 lisinopril-hydrochlorothiazide 20-25 mg tablet 1 tab PO DAILY RF: 0 simvastatin 40 mg tablet 40 mg PO DAILY RF: 0 Discontinued carvedilol 12.5 mg tablet 12.5 mg PO BID RF: 0 Discharge Orders: Discharge Order (Routine); Ordered 04/16/20 Ordered By: Dalton Garcia Referrals: Kimberly Boone MD [Physician] - 1-3 days (By Telehealth Sunday) Discharge Diet: Cardiac and Diabetic Discharge Activity: Increase activity as tolerated Activity Restrictions/Additional Instructions: Take all medicine as prescribed. Return for any worsening. Follow-up with your primary care provider by telehealth, Sunday On follow-up with your primary care provider please get a CBC, and BMP for recheck of your hemoglobin and kidney function. For now hold your carvedilol secondary to bradycardia. Your primary care provider will assess this and recommend restart or alter dosing Sunday. Discharge Attestations Time Spent in Discharge Care*: greater than 30 min Quality Metrics Clinical Quality Measures During this hospital stay, did patient experience: None Coding Level of Care Code Acute Stereoptic Projection Topographer for g Fwd Diagnoses Pneumonia due to COVID-19 virus U07.1; J12.89 Acute kidney injury N17.9 Transaminitis R74.01 Dehydration E86.0
[2020-04-16 08:49] VITALS: PULSE 63; RESP 18; O2SAT 92
[2020-04-16] MEDS: albuterol 8 gm MDI 2 PUFF INHALATION (08:50)
[2020-04-16 09:02] VITALS: O2SAT 91; O2SAT 93
[2020-04-16 10:34] VITALS: PULSE 63; RESP 18; O2SAT 92
--- NOTE | 2020-04-16 10:37 | DCPLANNER ---
The earliest danika terry could get her in was on Sunday.
[2020-04-16 22:03] LABS: Glucose Point of Care 210 mg/dL (70-110)
--- NOTE | 2020-04-19 16:36 | PC.SOCIAL ---
Spoke with patient post discharge. She is feeling better.She indicates she is breathing better and less short of breath on ambulation. She is eating and drinking well. Her weakness has improved some. We reviewed the new medications in detail and she understands why they were prescribed. We discussed rinsing mouth out after inhaler use. She will start doing this. She has decided not to take Metformin anymore since once she went back on it her diarrhea returned. She is taking her Glipizide but indicates this is just once daily 10mg. She has discussed this with provider by phone. She indicates last two blood glucose readings were 64 and 121. Her Carvedilol was stopped and we discussed BP readings. She does monitor this periodically and last one checked was yesterday and BP was 132/71. She will have a teleconference with provider tomorrow. She understands to practice social distancing and to wear a mask if out in public. She is aware should practice good hand hygiene as well. We discussed plasma donation information and she would be willing to review information. This has been sent out. She has no questions or concerns and indicates she was treated well while hospitalized.
== END 2020-04-16 10:35 | disposition home or self-care (01) | DRG 177 ==
LOC: ER 11:20 → ICU 15:05 → MEDSURG 04-15 16:57
PROVIDERS: Emergency Medicine; Admitting Provider Internal Medicine; Visit Provider Internal Medicine
DX: U07.1 COVID-19 (principal); J12.89 Other viral pneumonia; N17.9 Acute kidney failure, unspecified; E86.0 Dehydration; R00.1 Bradycardia, unspecified; D64.9 Anemia, unspecified; Z79.84 Long term (current) use of oral hypoglycemic drugs; E78.5 Hyperlipidemia, unspecified; E11.9 Type 2 diabetes mellitus without complications; I10 Essential (primary) hypertension; K21.9 Gastro-esophageal reflux disease without esophagitis
CPT/HCPCS: 12345; 36415; 36416; 36600; 71045; 71275; 80053; 80074; 81001; 82728; 82803; 82962; 83605; 83615; 83735; 83880; 84145; 84484; 85025; 85378; 85384; 85610; 86140; 87040; 93005; 94640; 96372; 96375; 99284; J1100; J1650; J1815; J3535; J7030; Q9967

== ENCOUNTER → 2021-03-02 15:00 | Outpatient (BNVA) | payer OTHER, SELFPAY | PROVIDERS: Referring Provider Family Medicine; Visit Provider Podiatrist Foot & Ankle Surgery | DX: M79.672 Pain in left foot (principal); M72.2 Plantar fascial fibromatosis; E11.9 Type 2 diabetes mellitus without complications | CPT/HCPCS: 73630 ==

== ENCOUNTER 2021-03-02 16:01 | Outpatient (CLI) | payer OTHER, SELFPAY | END 2021-03-02 16:02 | disposition home or self-care (01) | LOC: SPT 16:01 | PROVIDERS: Visit Provider Podiatrist Foot & Ankle Surgery | DX: Z46.89 Encounter for fitting and adjustment of other specified devices (principal); M72.2 Plantar fascial fibromatosis | CPT/HCPCS: 97760; L4397 ==

== ENCOUNTER 2022-02-23 08:24 | Outpatient (CLI) | payer MEDICARE, OTHER, SELFPAY ==
--- NOTE | 2022-02-23 08:37 | MM_ITS ---
WS: [id number] SCREENING DIGITAL BREAST TOMOSYNTHESIS MAMMOGRAM WITH CAD HISTORY: SCREENING COMPARISON: 02/07/2019 and 04/02/2020 04/20/2014 2014 Bilateral CC and MLO with tomosynthesis and synthetic mammography submitted. Computer aided detection analyzed. Breast composition: There are scattered areas of fibroglandular density. Multiple bilateral new nodul es and asymmetries are noted. These nodules and asymmetries have developed since 2019. The largest in the central LEFT breast measures 18 x 9 mm in the mid to posterior depth central to the nipple. Desean tional scattered asymmetries along the 12:00 axis and within the anterior LEFT breast. There is a sli ghtly lobulated 7 mm asymmetry central to the RIGHT nipple. MM/[place] [id number] IMPRESSION: BI-RADS: 0-Incomplete: Need additional imaging evaluation FOLLOW UP: Need Additional Imaging RIGHT breast: Spot compression views (CC and MLO). True ML. Ultrasound to follo w if abnormality persists. LEFT breast: Spot compression views (CC and MLO). True ML. Ultrasound to follow if abnormality persists.
== END 2022-02-23 08:25 | disposition home or self-care (01) ==
LOC: RAD 08:25
PROVIDERS: PCP Family Medicine; Visit Provider Family Medicine
DX: Z12.31 Encounter for screening mammogram for malignant neoplasm of breast (principal)
CPT/HCPCS: 77063; 77067

== ENCOUNTER 2022-03-30 08:11 | Outpatient (CLI) | payer MEDICARE, OTHER, SELFPAY ==
--- NOTE | 2022-03-30 08:21 | MM_ITS ---
WS: [id number] ADDITIONAL VIEWS BILATERAL MAMMOGRAM AND BILATERAL BREAST ULTRASOUND, WITH DIGITAL BREAST tomosynthes is. HISTORY: ABNORMAL MAMMO COMPARISON: 02/23/2022, 02/07/2019 and 04/20/2014 Right breast: Tubular asymmetry persists in the anterior RIGHT breast posterior to the nipple. This i s probably a dilated duct. Ultrasound will be performed. Left breast: Asymmetries and new nodules in the upper outer quadrant of the LEFT breast remain after additional imaging. One of these nodules measuring 1.0 cm contains calcification. This nodule has bee n present on prior studies and probably represents a fibroadenoma or lymph node. The largest nodule m easures 1.7 cm in the central posterior breast. There are additional asymmetries in the upper outer q uadrant. BREAST ULTRASOUND RIGHT breast: Mild dilated ducts posterior to the RIGHT nipple. There is a single cluster of cysts me asuring 4 x 6 x 4 mm at 3:00 in the anterior breast. Cluster is at the areolar. This is a small clust er cyst with mildly echogenic esparza. LEFT breast: Hypoechoic mass at 3:00, 3 cm from the nipple with wall calcification corresponds to a l mynor-term stability fibroadenoma measuring 10 x 9 x 5 mm. The new mass at 4:00, 3 cm the nipple is ovo id measuring 14 x 10 x 6 mm. This is a cyst and corresponds to the mass on the mammogram. There are a few other scattered cysts which correspond to the findings on the mammogram also. No additional giovanni d mass or shadowing. MM/[place] [id number] IMPRESSION: BI-RADS: 3-Probably Benign FOLLOW UP: 6 Month Follow-up Recommend ultrasound follow-up the cluster of small complex cyst with hyperecho ic wall RIGHT breast at the areolar.
== END 2022-03-30 08:12 | disposition home or self-care (01) ==
LOC: RAD 08:14
PROVIDERS: PCP Family Medicine; Visit Provider Family Medicine
DX: R92.8 Other abnormal and inconclusive findings on diagnostic imaging of breast (principal); N60.01 Solitary cyst of right breast
CPT/HCPCS: 76642; 77062

== ENCOUNTER → 2022-05-03 13:10 | Outpatient (BNVA) | payer MEDICARE, OTHER, SELFPAY | PROVIDERS: PCP Family Medicine; Visit Provider Podiatrist Foot & Ankle Surgery | DX: M72.2 Plantar fascial fibromatosis (principal); E11.9 Type 2 diabetes mellitus without complications; G57.62 Lesion of plantar nerve, left lower limb; M21.611 Bunion of right foot; M21.612 Bunion of left foot; E11.42 Type 2 diabetes mellitus with diabetic polyneuropathy; M20.41 Other hammer toe(s) (acquired), right foot; M20.42 Other hammer toe(s) (acquired), left foot | CPT/HCPCS: 99214 ==

== ENCOUNTER → 2022-08-03 09:37 | Outpatient (BNVA) | payer MEDICARE, OTHER, SELFPAY | PROVIDERS: PCP Family Medicine; Visit Provider Family Medicine | DX: E11.42 Type 2 diabetes mellitus with diabetic polyneuropathy (principal); E66.9 Obesity, unspecified; I73.9 Peripheral vascular disease, unspecified; R74.01 Elevation of levels of liver transaminase levels | CPT/HCPCS: 80053; 80061; 83036; 84443; 84550; 85025 ==

== ENCOUNTER 2022-10-18 07:54 | Outpatient (CLI) | payer MEDICARE, OTHER, SELFPAY ==
--- NOTE | 2022-10-18 08:00 | US_ITS ---
WS: [id number] ULTRASOUND RIGHT BREAST HISTORY: 6MFU COMPARISON: 03/30/2022 TECHNIQUE: 2-D and Doppler. Again noted is a small cluster cyst with hyperechoic esparza at the areolar near 3:00. The cluster gianni ures 4 x 6 x 4 mm and not significantly increased in size. This is not a simple cyst. There are a few additional scattered benign cysts at 3:00. US/US breast RT limited* [id number] IMPRESSION: BI-RADS: 3-Probably Benign FOLLOW-UP: 6 Month Follow-up Patient to return for annual mammogram in 6 months. Diagnostic ultrasound evalu ation of the RIGHT breast at 3:00 should also be obtained at that time to docum ent continued long-term stability of the indeterminate mass at 3:00.
== END 2022-10-18 07:55 | disposition home or self-care (01) ==
PROVIDERS: PCP Family Medicine; Visit Provider Family Medicine
DX: R92.8 Other abnormal and inconclusive findings on diagnostic imaging of breast (principal); N60.01 Solitary cyst of right breast
CPT/HCPCS: 76642

== ENCOUNTER → 2022-12-25 14:45 | Outpatient (BNVA) | payer MEDICARE, OTHER, SELFPAY | PROVIDERS: PCP Family Medicine; Visit Provider Dermatology | DX: D23.62 Other benign neoplasm of skin of left upper limb, including shoulder (principal); D22.61 Melanocytic nevi of right upper limb, including shoulder; L73.8 Other specified follicular disorders; D22.5 Melanocytic nevi of trunk | CPT/HCPCS: 99213 ==

== ENCOUNTER → 2023-02-05 10:00 | Outpatient (BNVA) | payer MEDICARE, OTHER, SELFPAY | PROVIDERS: PCP Family Medicine; Visit Provider Family Medicine | DX: Z53.9 Procedure and treatment not carried out, unspecified reason (principal) | CPT/HCPCS: 80048; 80061; 83036; 84443 ==

== ENCOUNTER → 2023-02-05 15:58 | Outpatient (BNVA) | payer MEDICARE, OTHER, SELFPAY | PROVIDERS: PCP Family Medicine; Visit Provider Family Medicine | DX: I10 Essential (primary) hypertension (principal); E78.00 Pure hypercholesterolemia, unspecified; E11.9 Type 2 diabetes mellitus without complications; E11.42 Type 2 diabetes mellitus with diabetic polyneuropathy; M10.9 Gout, unspecified | CPT/HCPCS: 80048; 80061; 83036; 84443 ==

== ENCOUNTER → 2023-06-20 11:14 | Outpatient (BNVA) | payer MEDICARE, OTHER, SELFPAY | PROVIDERS: PCP Family Medicine; Visit Provider Podiatrist Foot & Ankle Surgery | DX: E11.42 Type 2 diabetes mellitus with diabetic polyneuropathy (principal); Q82.8 Other specified congenital malformations of skin | CPT/HCPCS: 99213 ==

== ENCOUNTER 2023-07-09 09:38 | Outpatient (CLI) | payer MEDICARE, OTHER, SELFPAY ==
--- NOTE | 2023-07-09 09:42 | MM_ITS ---
WS: [id number] DIAGNOSTIC BILATERAL DIGITAL BREAST TOMOSYNTHESIS MAMMOGRAPHY WITH CAD RIGHT breast ultrasound, limited HISTORY: Abnormal Mammogram, follow-up from 2 years ago. COMPARISON: 02/07/2019, 02/23/2025, 03/30/2022, 04/20/2014 TECHNIQUE: Bilateral craniocaudad, mediolateral oblique, and mediolateral views are submitted with to angelo and JAYLEEN. Computer aided detection utilized. Breast composition: There are scattered areas of fibroglandular density. Numerous bilateral asymmetri es. Nodules in partially obscured nodules with calcifications within each breast. As compared to the prior examinations no obvious interval change. Ultrasound RIGHT breast, limited. Ultrasound is directed to the RIGHT areolar region where there is a small cluster of complex cysts. S everal small cysts are identified. The largest cluster measures 3.5 x 4 mm. Similar in appearance to the prior examination with no increase in size. IMPRESSION: MM/[place] [id number] BI-RADS: 2-Benign FOLLOW UP: 1 Year Follow-up
--- NOTE | 2023-07-09 10:30 | US_ITS ---
WS: [id number] DIAGNOSTIC BILATERAL DIGITAL BREAST TOMOSYNTHESIS MAMMOGRAPHY WITH CAD RIGHT breast ultrasound, limited HISTORY: Abnormal Mammogram, follow-up from 2 years ago. COMPARISON: 02/07/2019, 02/23/2025, 03/30/2022, 04/20/2014 TECHNIQUE: Bilateral craniocaudad, mediolateral oblique, and mediolateral views are submitted with to angelo and JAYLEEN. Computer aided detection utilized. Breast composition: There are scattered areas of fibroglandular density. Numerous bilateral asymmetri es. Nodules in partially obscured nodules with calcifications within each breast. As compared to the prior examinations no obvious interval change. Ultrasound RIGHT breast, limited. Ultrasound is directed to the RIGHT areolar region where there is a small cluster of complex cysts. S everal small cysts are identified. The largest cluster measures 3.5 x 4 mm. Similar in appearance to the prior examination with no increase in size. IMPRESSION: US/US breast RT limited* [id number] BI-RADS: 2-Benign FOLLOW UP: 1 Year Follow-up
== END 2023-07-09 09:39 | disposition home or self-care (01) ==
LOC: RAD 09:39
PROVIDERS: PCP Family Medicine; Visit Provider Family Medicine
DX: R92.8 Other abnormal and inconclusive findings on diagnostic imaging of breast (principal); N60.01 Solitary cyst of right breast
CPT/HCPCS: 76642; 77062; G0279

== ENCOUNTER 2023-09-06 13:30 | Outpatient (CLI) | payer MEDICARE, OTHER, SELFPAY ==
[2023-09-06 14:45] LABS: C.Diff PCR (Lab) NEGATIVE (Negative)
== END 2023-09-06 13:31 | disposition home or self-care (01) ==
LOC: LAB 13:31
PROVIDERS: PCP Family Medicine; Visit Provider Family Medicine
DX: K52.9 Noninfective gastroenteritis and colitis, unspecified (principal)
CPT/HCPCS: 80053; 80061; 83036; 83630; 83735; 84443; 85025; 87177; 87209; 87338; 87493

== ENCOUNTER → 2023-10-18 11:05 | Outpatient (BNVA) | payer MEDICARE, OTHER, SELFPAY | PROVIDERS: PCP Family Medicine; Visit Provider Nurse Practitioner | DX: R39.9 Unspecified symptoms and signs involving the genitourinary system (principal); N30.01 Acute cystitis with hematuria; B37.2 Candidiasis of skin and nail | CPT/HCPCS: 81000 ==

== ENCOUNTER → 2023-12-13 10:09 | Outpatient (BNVA) | payer MEDICARE, OTHER, SELFPAY | PROVIDERS: PCP Family Medicine; Visit Provider Nurse Practitioner | DX: R39.9 Unspecified symptoms and signs involving the genitourinary system (principal) | CPT/HCPCS: 81000 ==

== ENCOUNTER → 2023-12-26 15:10 | Outpatient (BNVA) | payer MEDICARE, OTHER, SELFPAY | PROVIDERS: PCP Family Medicine; Visit Provider Nurse Practitioner Family | DX: D48.5 Neoplasm of uncertain behavior of skin (principal); L82.0 Inflamed seborrheic keratosis; L73.8 Other specified follicular disorders; L30.4 Erythema intertrigo | CPT/HCPCS: 11102; 17110; 99214 ==

== ENCOUNTER → 2024-01-01 10:03 | Outpatient (BNVA) | payer MEDICARE, OTHER, SELFPAY | PROVIDERS: PCP Family Medicine; Visit Provider Family Medicine | DX: N39.0 Urinary tract infection, site not specified (principal) | CPT/HCPCS: 81000 ==

== ENCOUNTER → 2024-01-07 10:21 | Outpatient (BNVA) | payer MEDICARE, OTHER, SELFPAY | PROVIDERS: PCP Family Medicine; Visit Provider Registered Nurse Neonatal Intensive Care | DX: R39.9 Unspecified symptoms and signs involving the genitourinary system (principal) | CPT/HCPCS: 81000; 87077; 87086; 87184 ==

== ENCOUNTER → 2024-02-04 10:31 | Outpatient (BNVA) | payer MEDICARE, OTHER, SELFPAY | PROVIDERS: PCP Family Medicine; Visit Provider Registered Nurse Neonatal Intensive Care | DX: R30.0 Dysuria (principal); N39.0 Urinary tract infection, site not specified | CPT/HCPCS: 81000; 87077; 87086; 87184 ==

== ENCOUNTER → 2024-06-13 09:24 | Outpatient (BNVA) | payer MEDICARE, OTHER, SELFPAY | PROVIDERS: PCP Family Medicine; Visit Provider Family Medicine | DX: Z12.11 Encounter for screening for malignant neoplasm of colon (principal); Z12.12 Encounter for screening for malignant neoplasm of rectum; Z80.0 Family history of malignant neoplasm of digestive organs; E11.9 Type 2 diabetes mellitus without complications; I10 Essential (primary) hypertension; E78.00 Pure hypercholesterolemia, unspecified; K21.9 Gastro-esophageal reflux disease without esophagitis; N39.0 Urinary tract infection, site not specified; K52.9 Noninfective gastroenteritis and colitis, unspecified; N32.81 Overactive bladder; M1A.09X0 Idiopathic chronic gout, multiple sites, without tophus (tophi); B37.2 Candidiasis of skin and nail; Z76.89 Persons encountering health services in other specified circumstances | CPT/HCPCS: 82043; 83036; 87077; 87086; 87184 ==

== ENCOUNTER → 2024-06-17 10:40 | Outpatient (BNVA) | payer MEDICARE, OTHER, SELFPAY | PROVIDERS: PCP Family Medicine; Visit Provider Podiatrist Foot & Ankle Surgery | DX: E11.42 Type 2 diabetes mellitus with diabetic polyneuropathy (principal); Q82.8 Other specified congenital malformations of skin; M72.2 Plantar fascial fibromatosis | CPT/HCPCS: 99213 ==

== ENCOUNTER → 2024-07-03 10:41 | Outpatient (BNVA) | payer MEDICARE, OTHER, SELFPAY | PROVIDERS: PCP Family Medicine; Visit Provider Family Medicine | DX: N39.0 Urinary tract infection, site not specified (principal) | CPT/HCPCS: 87077; 87086; 87184 ==

== ENCOUNTER → 2024-07-17 11:02 | Outpatient (BNVA) | payer MEDICARE, OTHER, SELFPAY | PROVIDERS: PCP Family Medicine; Visit Provider Emergency Medicine | DX: N39.0 Urinary tract infection, site not specified (principal) | CPT/HCPCS: 87077; 87086; 87184 ==

== ENCOUNTER → 2024-08-22 11:14 | Outpatient (BNVA) | payer MEDICARE, OTHER, SELFPAY | PROVIDERS: PCP Family Medicine; Visit Provider Family Medicine | DX: J02.9 Acute pharyngitis, unspecified (principal) | CPT/HCPCS: 87071; 87400; 87880 ==

== ENCOUNTER → 2024-11-10 15:33 | Outpatient (BNVA) | payer MEDICARE, OTHER, SELFPAY | PROVIDERS: PCP Family Medicine; Visit Provider Family Medicine | DX: Z12.11 Encounter for screening for malignant neoplasm of colon (principal); Z80.0 Family history of malignant neoplasm of digestive organs; E11.9 Type 2 diabetes mellitus without complications; E78.00 Pure hypercholesterolemia, unspecified; I10 Essential (primary) hypertension; K52.9 Noninfective gastroenteritis and colitis, unspecified; G47.33 Obstructive sleep apnea (adult) (pediatric) | CPT/HCPCS: 80053; 80061; 83036; 84443; 85025 ==

== ENCOUNTER → 2024-12-04 09:41 | Outpatient (BNVA) | payer MEDICARE, OTHER, SELFPAY | PROVIDERS: PCP Family Medicine; Referring Provider Family Medicine; Visit Provider Student in an Organized Health Care Education/Training Program | DX: Z12.11 Encounter for screening for malignant neoplasm of colon (principal) | CPT/HCPCS: 99024; 99204 ==

== ENCOUNTER → 2024-12-25 08:38 | Outpatient (BNVA) | payer MEDICARE, OTHER, SELFPAY | PROVIDERS: PCP Family Medicine; Visit Provider Nurse Practitioner Family | DX: L57.8 Other skin changes due to chronic exposure to nonionizing radiation (principal); D18.01 Hemangioma of skin and subcutaneous tissue; S50.911A Unspecified superficial injury of right forearm, initial encounter; X58.XXXA Exposure to other specified factors, initial encounter | CPT/HCPCS: 99213 ==

== ENCOUNTER 2024-12-30 05:55 | Day surgery (SDC) | payer MEDICARE, OTHER, SELFPAY ==
[2024-12-30 06:08] VITALS: BP 161/113; PULSE 81; RESP 18; TEMP 36.1; O2SAT 94
[2024-12-30 06:09] VITALS: BMI 41.3
--- NOTE | 2024-12-30 06:38 | ANES.PREANE2 ---
Pre-Anesthetic Assessment Height/Weight: Height 1.83 m Weight 138.346 kg Temp Pulse Resp BP Pulse Ox O2 Del Method 97.0 F L 81 18 161/113 94 Room Air 12/30/24 06:08 12/30/24 06:08 12/30/24 06:08 12/30/24 06:08 12/30/24 06:08 12/30/24 06:08 Operation Date: 12/30/24 07:00 Proposed Procedures p Colonoscopy 32052 G0105, Z12.11(Not Applicable) - Andrew Diaz MD Familial anesthetic complications: None Was Beta Debbie taken within 24 hours: Yes Was Clonidine taken within 24 hours: N/A Last intake: Intake Last Liquid Date 12/29/24 Last Liquid Time 20:30 Last Solid Date 12/28/24 Social No alcohol and No tobacco Exam alert, oriented x 3, clear to auscultation bilaterally and regular rate & rhythm Airway Submandibular: within normal limits Cervical ROM: within normal limits Mallampati: Class II Dentition: full History/ROS No significant history except as noted and No significant complaints Pulmonary Sleep Apnea CV/HEM Hypertension Recurrent UTI Overactive bladder Kidney failure with COVID 2020 Hepatic None reported GI Gastroesophageal Reflux Disease and Hiatal Hernia Metabolic Diabetes Mellitus, Hyperlipidemia and Morbid Obesity Musc/skel Osteoarthritis/DJD Left hip replaced Neuropsych None reported Anesthetic Plan ASA status: 3 Anesthesia: Anesthesia Evaluation, General and MAC Risk of > 500 ml blood loss (7ml/kg in children): No Medications/Allergies Home Medications ?Medication ?Instructions ?Recorded ?Confirmed ?Last Taken ?Type betamethasone dipropionate 0.05 % 1 applic topical DAILY PRN skin 10/09/22 12/30/24 Unknown Rx topical cream irritation #15 grams ascorbic acid (vitamin C) 1,000 mg 1 g PO BID 06/13/24 12/30/24 12/29/24 History capsule aspirin 81 mg tablet,delayed 81 mg PO BID 06/13/24 12/30/24 12/28/24 History release cholecalciferol (vitamin D3) 125 125 mcg PO DAILY 06/13/24 12/30/24 12/29/24 History mcg (5,000 unit) capsule coenzyme Q10 75 mg capsule (Ultra 300 mg PO DAILY 06/13/24 12/30/24 12/29/24 History CoQ10) glucosamine-chondroitin 250 mg-200 2 tab PO BID 06/13/24 12/30/24 12/29/24 History mg tablet (Osteo Bi-Flex) multivitamin with minerals 1 tab PO TID 06/13/24 12/30/24 12/29/24 History (Hair,Skin and Nails tablet) nystatin 100,000 unit/gram topical 1 applic topical BID #60 grams 06/13/24 12/30/24 Unknown Rx powder turmeric root extract 500 mg 1,500 mg PO BID 06/13/24 12/30/24 12/29/24 History capsule vit C 500 mg-D3 15 mcg-folic 1,000 500 cap PO BID 06/13/24 12/30/24 12/29/24 History mcg-zinc 16 th-fyzrbv-wlhx capsule fluconazole 100 mg tablet 100 mg PO DAILY 14 days #14 tabs 06/23/24 12/30/24 12/29/24 Rx CPAP machine, heated humidifier, #1 ea 11/10/24 12/30/24 Unknown Rx mask and tubing amoxicillin 250 mg-potassium 1 tab PO QPM 12/25/24 12/30/24 12/29/24 History clavulanate 125 mg tablet carvedilol 12.5 mg tablet 12.5 mg PO BID 12/25/24 12/30/24 12/30/24 History diphenoxylate-atropine 2.5 2 tab PO DAILY PRN diarrhea 12/25/24 12/30/24 12/24/24 History mg-0.025 mg tablet (Lomotil) glipizide 10 mg tablet 10 mg PO BID 12/25/24 12/30/24 12/29/24 History lisinopril 20 1 tab PO DAILY 12/25/24 12/30/24 12/29/24 History mg-hydrochlorothiazide 25 mg tablet nystatin 100,000 unit/gram topical 1 applic topical BID 12/25/24 12/30/24 Unknown History powder omeprazole 20 mg capsule,delayed 20 mg PO DAILY 12/25/24 12/30/24 12/29/24 History release simvastatin 40 mg tablet 40 mg PO DAILY 12/25/24 12/30/24 12/29/24 History dulaglutide 1.5 mg/0.5 mL See Rx Instructions .Route 12/29/24 12/30/24 12/23/24 Rx subcutaneous pen injector .COMPLEX #2 mL (Trulicity) Allergies Allergy/AdvReac Type Severity Reaction Status Date / Time semaglutide (From Ozempic) Allergy Mild ADR-Diarrhe Verified 12/30/24 06:06 a nitrofurantoin Allergy ADR-Itching Verified 12/30/24 06:06 Current Medications Generic Name Dose Route Start Last Admin Trade Name Freq PRN Reason Stop Dose Admin Sodium Chloride 1,000 mls @ 15 mls/hr 12/30/24 06:00 12/30/24 06:22 Sodium Chloride 0.9% IV 12/31/24 05:59 15 mls/hr .Q24H PRN Administration COLONOSCOPY FLUIDS PFSH Anesthesia Medical History Obstructive sleep apnea on CPAP Screening for colon cancer Candidal intertrigo under pannus Candidiasis, cutaneous under pannus Recurrent UTI Chronic diarrhea post pauline; on lomotil Overactive bladder Family hx of colon cancer father GERD (gastroesophageal reflux disease) Gout Hypercholesterolemia Hypertension Diabetes mellitus Surgical History Hx of colonoscopy 7.17.18 normal; r/u 5 yrs due to family hx Hx of umbilical hernia repair X 2 Hx of shoulder surgery right; for frozen shoulder Hx of breast surgery bilateral cysts removed History of strabismus surgery Hx of total hysterectomy with removal of both tubes and ovaries endometriosis History of bunionectomy of left great toe History of ankle surgery Left Hx of total hip arthroplasty left History of cholecystectomy Family History Father CAD (coronary artery disease) Diabetes mellitus, type 2 Colon cancer Chronic kidney disease (CKD) Lung cancer Mother Hyperthyroidism Rheumatoid arthritis Stroke Sister Thyroid disease Sister Neurological disorder Multiple Sclerosis Social History Smoking and tobacco/nicotine status: never used tobacco/nicotine Second hand smoke exposure: No Alcohol intake: never Substance/Drug Use: never Adopted: No Caregiver/support person: No Household members: spouse Housing: House Marital status: Number of children: 2 service: No Current occupational status: retired Previous occupational history: worked for [employer] Pets and animals: Yes Leisure activites: fishing Do you think of yourself as: Straight/Heterosexual Current gender identity: Female Female Reproductive History Spontaneous abortions: No
--- NOTE | 2024-12-30 07:01 | W.PM.OPSUD ---
Surgery/Procedure H&P Update DATE OF PROCEDURE: December 30, 2024 DATE H&P PERFORMED: 12/04/24 H&P UPDATE INFORMATION: I have reviewed H&P completed within last 30 days, I have examined patient prior to procedure and No changes to prior documentation PLANNED PROCEDURE: Operation Date: 12/30/24 07:00 Proposed Procedures p Colonoscopy [id number] G0105, Z12.11(Not Applicable) - Andrew Diaz MD
[2024-12-30 07:41] VITALS: BP 99/64; PULSE 78; RESP 18; TEMP 36.3; O2SAT 95
[2024-12-30 07:50] VITALS: BP 106/86; PULSE 79; RESP 18; TEMP 36.2; O2SAT 93
== END 2024-12-30 08:21 | disposition home or self-care (01) ==
PROVIDERS: PCP Family Medicine; Visit Provider Student in an Organized Health Care Education/Training Program
PROC: 0DJD8ZZ Inspection of Lower Intestinal Tract, Via Natural or Artificial Opening Endoscopic (ICD-10-PCS; CPT 45378; principal; 2024-12-30 07:00)
DX: Z12.11 Encounter for screening for malignant neoplasm of colon (principal); K57.30 Diverticulosis of large intestine without perforation or abscess without bleeding; I10 Essential (primary) hypertension; M10.9 Gout, unspecified; K21.9 Gastro-esophageal reflux disease without esophagitis; E11.9 Type 2 diabetes mellitus without complications; E78.5 Hyperlipidemia, unspecified; K44.9 Diaphragmatic hernia without obstruction or gangrene; G47.33 Obstructive sleep apnea (adult) (pediatric); E66.01 Morbid (severe) obesity due to excess calories; Z68.41 Body mass index [BMI] 40.0-44.9, adult; Z79.899 Other long term (current) drug therapy; Z79.82 Long term (current) use of aspirin; Z79.85 Long-term (current) use of injectable non-insulin antidiabetic drugs; Z88.8 Allergy status to other drugs, medicaments and biological substances; Z80.0 Family history of malignant neoplasm of digestive organs; Z87.440 Personal history of urinary (tract) infections
CPT/HCPCS: 36416; 82962; G0105; J2371; J2405; J2704; J7030

== ENCOUNTER → 2025-02-05 11:45 | Outpatient (BNVA) | payer MEDICARE, OTHER, SELFPAY | PROVIDERS: PCP Family Medicine; Visit Provider Family Medicine | DX: N39.0 Urinary tract infection, site not specified (principal) | CPT/HCPCS: 87086 ==

== ENCOUNTER 2025-02-20 12:36 | Outpatient (CLI) | payer MEDICARE, OTHER, SELFPAY ==
--- NOTE | 2025-02-20 13:00 | MM_ITS ---
WS: [id number] BILATERAL 3D TOMOSYNTHESIS DIGITAL SCREENING MAMMOGRAPHY WITH CAD CLINICAL INFORMATION: screening HISTORY: Screening mammogram. No current complaints. COMPARISON: 2023 TECHNIQUE: Bilateral CC and MLO views. FINDINGS: Scattered fibroglandular densities bilaterally. No suspicious focal mass, asymmetry, calcifications, or architectural distortion. No evidence of malignancy. Stable ovoid nodules LEFT breast with calcifications. MM/MM scr BI tomosynthesis [id number] IMPRESSION: DENSITY: There are scattered areas of fibroglandular density. BI-RADS: 2 - Benign. FOLLOW UP: 1 Year Follow-up Recommend return to annual screening mammography.
--- NOTE | 2025-02-20 13:30 | XR_ITS ---
WS: [id number] DEXA (DUAL ENERGY X-RAY ABSORPTIOMETRY) Bone mineral density was performed using a Folloyu machine. HISTORY: postmenopausal COMPARISON: None available. Lumbar spine BMD (L1-L4): 1.371 g/cm2 T score: 1.6 Z score: 2.1 Total hip BMD: Right: 1.057. T score: 0.4 Z score: 0.9 10 year probability of a major osteoporotic fracture is 10.8%. XR/XR DEXA axial skeleton* 13477 IMPRESSION: NORMAL BONE MINERAL DENSITY based upon the WHO classification for females.
== END 2025-02-20 12:37 | disposition home or self-care (01) ==
LOC: RAD 12:37
PROVIDERS: PCP Family Medicine; Visit Provider Family Medicine
DX: Z12.31 Encounter for screening mammogram for malignant neoplasm of breast (principal); Z13.820 Encounter for screening for osteoporosis; Z78.0 Asymptomatic menopausal state
CPT/HCPCS: 77063; 77067; 77080

== ENCOUNTER → 2025-04-13 10:37 | Outpatient (BNVA) | payer MEDICARE, OTHER, SELFPAY | PROVIDERS: PCP Family Medicine; Visit Provider Family Medicine | DX: E11.65 Type 2 diabetes mellitus with hyperglycemia (principal) | CPT/HCPCS: 82043; 83036 ==

== ENCOUNTER 2025-06-15 10:54 | Outpatient (CLI) | payer MEDICARE, OTHER, SELFPAY ==
--- NOTE | 2025-06-15 11:00 | XRR_ITS ---
PROCEDURE INFORMATION: Exam: XR Right Hip Exam date and time: 06/15/2025 11:15 AM Age: 69 years old Clinical indication: Hip pain; Right hip; Additional info: Right hip pain with walking TECHNIQUE: Imaging protocol: Radiologic exam of the right hip. Views: 2 or 3 views hip with pelvis when performed. COMPARISON: No relevant prior studies available. FINDINGS: Bones/joints: Degenerative changes noted along the superolateral aspect of the right hip. No fracture is identified. Soft tissues: Unremarkable. XR/XR hip RT 2-3V wo/w pel* [id number] IMPRESSION: Right hip osteoarthritis.
== END 2025-06-15 10:55 | disposition home or self-care (01) ==
LOC: RAD 10:56
PROVIDERS: PCP Family Medicine; Visit Provider Family Medicine
DX: M25.551 Pain in right hip (principal); M16.11 Unilateral primary osteoarthritis, right hip; E11.42 Type 2 diabetes mellitus with diabetic polyneuropathy; E11.8 Type 2 diabetes mellitus with unspecified complications
CPT/HCPCS: 73502; 99213